=== PATIENT | male | born 1995 | race Caucasian/White ===

== ENCOUNTER 2020-08-11 03:56 | Emergency (ER) | payer OTHER ==
[~2020-08-11] VITALS: Ht 182.9 cm; Wt 122.6 kg
[~2020-08-11 03:56] MED LIST: AZIT250T6 PO
--- NOTE | 2020-08-11 04:05 | PHYS DOC ---
Past History Past Medical History: No Pertinent History, Sciatica Past Surgical History: No Surgical History Smoking: Non-smoker Alcohol Use: None Drug Use: None General Adult EDM: Chief Complaint: BACK PAIN OR INJURY HPI: HPI: "..I ve hurt my back before..but never this bad....",," earlier reffing..a soccer games at [place]..running up and down field..but pain started..and has gotten much worse... I took my mom muscle relaxer..but it has not helped..." Patient is a 25 year old male who presents with above hx and complaints lumbar sacral back pain. Pain is localized more on the left. Pain follows the sciatic nerve into the hip. Straight leg lift on both sides exacerbates pain but more so on the left. DTR reflexes are 1-2 patella. Does have saddle sensation. No problems with urination. No problems with defecation. No history of fever or chills. No history of IV drug use. No history of cancer. 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 Patient denies any history of immunosuppression. Denies any travel outside the [place] area. Review of Systems: Review of Systems: Constitutional: Denies fever or chills Eyes: Denies change in visual acuity HENT: Denies nasal congestion or sore throat Respiratory: Denies cough or shortness of breath Cardiovascular: Denies chest pain or edema GI: Denies abdominal pain, nausea, vomiting, bloody stools or diarrhea : Denies dysuria Musculoskeletal: Complains of back pain Integument: Denies rash Neurologic: Denies headache, focal weakness or sensory changes Endocrine: Denies polyuria or polydipsia Lymphatic: Denies swollen glands Psychiatric: Denies depression or anxiety Heart Score: Risk Factors: Risk Factors: DM, Current or recent (<one month) smoker, HTN, HLP, family history of CAD, obesity. Risk Scores: Score 0 - 3: 2.5% MACE over next 6 weeks - Discharge Home Score 4 - 6: 20.3% MACE over next 6 weeks - Admit for Clinical Observation Score 7 - 10: 72.7% MACE over next 6 weeks - Early Invasive Strategies Family History: Family History: Noncontributory to presentation Current Medications: Current Meds: Tylenol and ibuprofen. Did take mother's muscle relaxant? Allergies: Allergies: Allergies Coded Allergies Type Severity Reaction Last Updated Verified amoxicillin Allergy Unknown 11/08/16 Yes Physical Exam: PE: Constitutional: Well developed, well nourished, in acute distress, non-toxic milton earance. [] HENT: Normocephalic, atraumatic, bilateral external ears normal, oropharynx moist, no oral exudates, nose normal. [] Eyes: PERRLA, EOMI, conjunctiva normal, no discharge. [] Neck: Normal range of motion, no tenderness, supple, no stridor. [] Cardiovascular:Heart rate regular rhythm, no murmur [] Lungs & Thorax: Bilateral breath sounds clear to auscultation [] Abdomen: Bowel sounds normal, soft, no tenderness, no masses, no pulsatile masses. [] Circumcised male. Testicles descended. Skin: Warm, dry, no erythema, no rash. [] Back: Lumbar sacral muscle spasms. Left sciatic nerve tenderness, no CVA tenderness. [] Extremities: No tenderness, no cyanosis, no clubbing, ROM intact, no edema. [] Neurologic: Alert and oriented X 3, very guarded ataxic gait, requires a wheelchair to get into the building,.. [] DTRs +1-2 knees. No saddle loss. Pain appears to track along left sciatic nerve. Psychologic: Affect anxious, judgement normal, mood normal. [] EKG: EKG: [] Radiology/Procedures: Radiology/Procedures: [][place] [address] IMAGING REPORT Signed PATIENT: CASEY BOUCHER ACCOUNT: [id number] : 1995 LOCATION: ER AGE: 25 SEX: M EXAM STATUS: REG ER ORD. PHYSICIAN: ALLEGRA KUMARI MD REASON: back injury, PAIN PROCEDURE: CT LUMBAR SPINE WO CONTRAST INDICATION: Reason: back injury, PAIN / Spl. Instructions: / History: COMPARISON: None. TECHNIQUE: Axial CT images obtained through the lumbar spine. One or more of the following individualized dose reduction techniques were utilized for this examination: 1. Automated exposure control; 2. Adjustment of the mA and/or kV according to patient size; 3. Use of iterative reconstruction technique. FINDINGS: There is multiple endplate indentations throughout the lumbar spine. This includes at L3, L2, L1, T12, T11 and partially visualized T10. Moderate loss of height of T11 vertebral body. Mild retrolisthesis of L4 on 5, L3 on 4, L1 on 2, T12 on L1. No evidence of dislocation. There is a disc protrusion at L4-5 with mass effect on the thecal sac. This does cause some central canal stenosis. There is also some less severe disc bulges at other levels as well as osteophyte formation and facet hypertrophy. IMPRESSION: * Deformity of multiple vertebral endplates throughout the lumbar and partially visualized lower thoracic spine. Could be congenital in nature or secondary to causes such as Schmorl's node formation. * Loss of height of the T11 vertebral body. A portion of this is likely secondary to congenital process but a mild compression fracture could have this appearance as well given that this degree of loss of vertebral body height is more severe than at the other levels. Could be chronic in nature given the appearance but no comparison to assess for change. * Degenerative changes the spine with early osteophyte formation as well as multiple disc protrusions. More than typically seen for the patient's age. Electronically signed by: Ale Garcia MD (08/11/2020 5:35 AM) [id number] DICTATED AND SIGNED BY: ALE GARCIA MD DATE: 08/11/20 0535 CC: ALLEGRA KUMARI MD; CARMINE ROJAS MD ~ Course & Med Decision Making: Course & Med Decision Making Pertinent Labs and Imaging studies reviewed. (See chart for details) Patient use ice packs as needed. Avoid any heat compresses until after 3 days. Do not lift more than 25 pounds until follow-up with primary care. Consider follow-up with neurosurgery. Patient take Tylenol and ibuprofen for pain. May take Vicoprofen up to 4 times a day for marked pain. May take Flexeril 10 mg up to 3 times a day for muscle spasms. Return if any concerns. Impression: 1. Back Pain 2. Sciatica 3. Multilevel degenerative joint changes with disc protrusions(-some mass- effect at L4-L5.) [] Mervin Disclaimer: Dragon Disclaimer: This electronic medical record was generated, in whole or in part, using a voice recognition dictation system. Departure Departure: Disposition: 01 HOME/RESIDENCE PRIOR TO ADM Condition: STABLE Referrals: CARMINE ROJAS MD (PCP) Scripts Cyclobenzaprine Hcl (CYCLOBENZAPRINE HCL) 10 Mg Tablet 10 MG PO TID PRN PRN for spasms, #30 TAB Prov: ALLEGRA KUMARI MD 08/11/20 Hydrocodone/Ibuprofen (HYDROCODONE-IBUPROFEN 7.5-200 ) 1 Each Tablet 1 TAB PO PRN Q6HRS PRN for PAIN, #30 TAB 0 Refills Prov: ALLEGRA KUMARI MD 08/11/20 Justification of Admission: Justification of Admission: Justification of Admission Dx: N/A Dragon Disclaimer This chart was dictated in whole or in part using Voice Recognition software in a busy, high-work load, and often noisy Emergency Department environment. It may contain unintended and wholly unrecognized errors or omissions. Dragon Disclaimer This chart was dictated in whole or in part using Voice Recognition software in a busy, high-work load, and often noisy Emergency Department environment. It may contain unintended and wholly unrecognized errors or omissions. Dragon Disclaimer This chart was dictated in whole or in part using Voice Recognition software in a busy, high-work load, and often noisy Emergency Department environment. It may contain unintended and wholly unrecognized errors or omissions. ALLEGRA KUMARI MD Aug 11, 2020 04:05
[2020-08-11 04:15] VITALS: BP 136/81
[2020-08-11] MEDS ORDERED: ORPHENADRINE CITRATE 60 MG/2 ML VIAL. IM ONE (04:15)
[2020-08-11] MEDS ORDERED: KETOROLAC 60 MG/2 ML VIAL. IM ONE (04:15)
[2020-08-11] MEDS ORDERED: MORPHINE SULFATE 10 MG/ML SYRINGE. SQ ONE (04:15)
--- NOTE | 2020-08-11 05:38 | RAD ---
INDICATION: Reason: back injury, PAIN / Spl. Instructions: / History: COMPARISON: None. TECHNIQUE: Axial CT images obtained through the lumbar spine. One or more of the following individualized dose reduction techniques were utilized for this examination: 1. Automated exposure control; 2. Adjustment of the mA and/or kV according to patient size; 3. Use of iterative reconstruction technique. FINDINGS: There is multiple endplate indentations throughout the lumbar spine. This includes at L3, L2, L1, T12, T11 and partially visualized T10. Moderate loss of height of T11 vertebral body. Mild retrolisthesis of L4 on 5, L3 on 4, L1 on 2, T12 on L1. No evidence of dislocation. There is a disc protrusion at L4-5 with mass effect on the thecal sac. This does cause some central canal stenosis. There is also some less severe disc bulges at other levels as well as osteophyte formation and facet hypertrophy. IMPRESSION: * Deformity of multiple vertebral endplates throughout the lumbar and partially visualized lower thoracic spine. Could be congenital in nature or secondary to causes such as Schmorl's node formation. * Loss of height of the T11 vertebral body. A portion of this is likely secondary to congenital process but a mild compression fracture could have this appearance as well given that this degree of loss of vertebral body height is more severe than at the other levels. Could be chronic in nature given the appearance but no comparison to assess for change. * Degenerative changes the spine with early osteophyte formation as well as multiple disc protrusions. More than typically seen for the patient's age. Electronically signed by: Jermaine Chan MD (08/11/2020 5:35 AM) [id number]
[2020-08-11] MEDS ORDERED: methylPREDNISolone ACETATE 40 MG/ML VIAL. IM ONE (05:45)
[2020-08-11] MEDS ORDERED: HYDR-1179 PO (05:49)
[2020-08-11] MEDS ORDERED: CYCL-331 PO (05:49)
== END 2020-08-11 06:14 | disposition home or self-care (01) ==
LOC: ER 03:56
DX: M54.42 Lumbago with sciatica, left side (principal); M53.3 Sacrococcygeal disorders, not elsewhere classified; Z88.1 Allergy status to other antibiotic agents
CPT/HCPCS: 72131; 96372; 99284; J1030; J1885; J2270; J2360

== ENCOUNTER 2021-11-07 13:33 | Emergency (ER) | payer OTHER ==
[~2021-11-07] VITALS: Ht 182.9 cm; Wt 115.0 kg
[~2021-11-07 13:33] MED LIST changes: +CYCL10TA19 PO; +HYDR-1179 PO
[2021-11-07] MEDS ORDERED: KETOROLAC 15 MG/ML VIAL. IVP ONE (14:15)
[2021-11-07] MEDS ORDERED: CYCLOBENZAPRINE 10 MG TABLET. PO ONE (14:15)
[2021-11-07 15:04] VITALS: BP 121/61
[2021-11-07] MEDS ORDERED: CYCL10TA19 PO (15:23)
--- NOTE | 2021-11-07 15:24 | PHYS DOC ---
Past History Past Medical History: No Pertinent History, Sciatica (RAZA WELLER APRN) Past Surgical History: No Surgical History (RAZA WELLER APRN) Smoking: Non-smoker Alcohol Use: Occasionally Drug Use: None (RAZA WELLER APRN) General Adult EDM: Chief Complaint: BACK PAIN OR INJURY HPI: HPI: Patient is a 26-year-old male presents with left-sided lower back pain that radiates down left leg. Patient denies saddle anesthesia. Denies urinary retention or loss of bowel. Denies injury. Patient states that he had gone to PT a year ago for sciatic nerve pain. Patient reports that symptoms of the same as a year ago. Denies taking anything for pain prior to arrival. Denies medical history. (RAZA WELLER APRN) Review of Systems: Review of Systems: ROS At least 10 ROS systems have been reviewed and are negative except as documented in the HPI. General: Negative except as outlined in HPI above. Skin: Negative except as outlined in HPI above. HEENT: Negative except as outlined in HPI above. Neck: Negative except as outlined in HPI above. Respiratory: Negative except as outlined in HPI above.. Cardiovascular: Negative except as outlined in HPI above. Abdomen: Negative except as outlined in HPI above. : Negative except as outlined in HPI above. Back/MSK: Negative except as outlined in HPI above. Neuro: Negative except as outlined in HPI above. Psych: Negative except as outlined in HPI above. (RAZA WELLER APRN) Current Medications: Current Meds: Current Medications Medications (Trade) Dose Ordered Sig/Camille Start Time Stop Time Status Last Admin Dose Admin Cyclobenzaprine HCl (Flexeril) 10 mg 1X ONCE 11/07/21 14:15 11/07/21 14:19 DC 11/07/21 14:32 10 MG Ketorolac Tromethamine (Toradol 15mg Vial) 15 mg 1X ONCE 11/07/21 14:15 11/07/21 14:19 DC 11/07/21 14:32 15 MG (RAZA WELLER APRN) Allergies: Allergies: Allergies Coded Allergies Type Severity Reaction Last Updated Verified amoxicillin Allergy Unknown 11/08/16 Yes (RAZA WELLER APRN) Physical Exam: PE: Constitutional: Well developed, well nourished, no acute distress, non-toxic appearance. [] HENT: Normocephalic, atraumatic, bilateral external ears normal, oropharynx moist, no oral exudates, nose normal. [] Eyes: PERRLA, EOMI, conjunctiva normal, no discharge. [] Neck: Normal range of motion, no tenderness, supple, no stridor. [] Cardiovascular:Heart rate regular rhythm, no murmur [] Lungs & Thorax: Bilateral breath sounds clear to auscultation [] Abdomen: Bowel sounds normal, soft, no tenderness, no masses, no pulsatile masses. [] Skin: Warm, dry, no erythema, no rash. [] Back: Left lower back tenderness, no CVA tenderness. [] Extremities: No tenderness, no cyanosis, no clubbing, ROM intact, no edema. Left legpain radiating down leg Neurologic: Alert and oriented X 3, normal motor function, normal sensory function, no focal deficits noted. [] Psychologic: Affect normal, judgement normal, mood normal. [] (RAZA WELLER APRN) Current Patient Data: Vital Signs: Vital Signs Date Time Temp Pulse Resp B/P (MAP) Pulse Ox O2 Delivery O2 Flow Rate FiO2 11/07/21 13:42 97.6 60 18 150/76 (100) 98 Room Air (RAZA WELLER APRN) EKG: EKG: [] (RAZA WELLER APRN) Radiology/Procedures: Radiology/Procedures: [] (RAZA WELLER APRN) Heart Score: C/O Chest Pain: No Risk Factors: Risk Factors: DM, Current or recent (<one month) smoker, HTN, HLP, family history of CAD, obesity. Risk Scores: Score 0 - 3: 2.5% MACE over next 6 weeks - Discharge Home Score 4 - 6: 20.3% MACE over next 6 weeks - Admit for Clinical Observation Score 7 - 10: 72.7% MACE over next 6 weeks - Early Invasive Strategies (RAZA WELLER APRN) Course & Med Decision Making: Course & Med Decision Making Pertinent Labs and Imaging studies reviewed. (See chart for details) [] 26-year-old male presents with left-sided lower back pain radiates down left leg. Patient has history of sciatic nerve pain and was in physical therapy 1 year ago. Patient reports symptoms are the same. Denies saddle anesthesia. Denies urinary retention or loss of bowel. Patient given Flexeril and Toradol. Reassessed patient. Patient states pain has greatly improved. Patient is still having lower left sided back pain. Patient given IM Medrol. Sending patient home with Flexeril to help with pain. Advised patient to take ibuprofen as well. Patient's pain is most likely from sciatic nerve pain. Discussed return precautions in length. Patient verbalizes understanding of discharge instructions. Patient should follow-up with PCP if pain does not resolve. (RAZA WELLER APRN) Mervin Disclaimer: Mervin Disclaimer: This electronic medical record was generated, in whole or in part, using a voice recognition dictation system. (RAZA WELLER APRN) Attending Co-Sign The patient was seen and interviewed as well as examined at the bedside. The chart was reviewed. The case was discussed. Agree with the plan of care. (DERIC EDWARDS DO) Departure Departure: Impression: Primary Impression: Sciatica, left side Disposition: 01 HOME / SELF CARE / HOMELESS Condition: STABLE Referrals: CARMINE ROJAS MD (PCP) Patient Instructions: Sciatica, [id number] Additional Instructions: You were seen in the emergency room for lower left-sided back pain that radiated down her left leg. You were given a muscle relaxer and pain medication while in the ER. Sending you home with muscle relaxer. Please take ibuprofen at home. Follow-up with your PCP if pain does not improve. Please return to the emergency room with increasing pain. Urinary retention, loss of bowel. Or any other concerns or problems. EMERGENCY DEPARTMENT GENERAL DISCHARGE INSTRUCTIONS Thank you for coming to [facility] (ED) today and trusting us with you care. We trust that you had a positivie experience in our Emergency Department. If you wish to speak to the department management, you may call the director at . YOUR FOLLOW UP INSTRUCTIONS ARE FOLLOWS: 1. Do you have a private Doctor? If you do not have a private doctor, please ask for a resource list of physicians or clinics that may be able to assist you with follow up care. 2. The Emergency Physician has interpreted your x-rays. The X-Ray specialist will also review them. If there is a change in the findings, you will be notified in 48 hours when at all possible. 3. A lab test or culture has been done, your results will be reviewed and you will be notified if you need a change in treatment. ADDITIONAL INSTRUCTIONS AND INFORMATION: 1. Your care today has been supervised by a physician who is specially trained in emergency care. Many problems require more than one evaluation for a complete diagnosis and treatment. We recommend that you schedule your follow up appointment as recommended to ensure complete treatment of you illness or injury. If you are unable to obtain follow up care and continue to have a problem, or if your condition worsens, we recommend that you return to the ED. 2. We are not able to safely determine your condition over the phone nor are we able to give sound medical advice over the phone. For these safety reasons, if you call for medical advice we will ask you to come to the ED for further evaluation. 3. If you have any questions regarding these discharge instructions please call the ED at [phone]. SAFETY INFORMATION: In the interest of safety, wellness, and injury prevention; we encourage you to wear your sealbelt, if you smoke; quite smoking, and we encourage family to use a protective helmet for bicycling and other sporting events that present an increased risk for head injury. IF YOUR SYMPTOMS WORSEN OR NEW SYMPTOMS DEVELOP, OR YOU HAVE CONCERNS ABOUT YOUR CONDITION; OR IF YOUR CONDITION WORSENS WHILE YOU ARE WAITING FOR YOUR FOLLOW UP APPOINTMENT; EITHER CONTACT YOUR PRIMARY CARE DOCTOR, THE PHYSICIAN WHOSE NAME AND NUMBER YOU WERE GIVEN, OR RETURN TO THE ED IMMEDIATELY. Scripts Cyclobenzaprine Hcl (CYCLOBENZAPRINE HCL) 10 Mg Tablet 1 TAB PO TID PRN for PAIN for 5 Days, #15 TAB 0 Refills Prov: RAZA WELLER APRN 11/07/21 RAZA WELLER APRN Nov 07, 2021 15:24 DERIC EDWARDS DO Nov 08, 2021 12:52
[2021-11-07] MEDS ORDERED: methylPREDNISolone ACETATE 40 MG/ML VIAL. IM ONE (15:45)
== END 2021-11-07 15:42 | disposition home or self-care (01) ==
LOC: ER 13:33
DX: M54.42 Lumbago with sciatica, left side (principal); Z88.1 Allergy status to other antibiotic agents
CPT/HCPCS: 96372; 96374; 99283; J1030; J1885

== ENCOUNTER 2022-02-26 09:44 | Emergency (ER) | payer OTHER ==
[~2022-02-26] VITALS: Ht 182.9 cm; Wt 118.0 kg
[2022-02-26 10:19] VITALS: BP 152/97
--- NOTE | 2022-02-26 11:30 | PHYS DOC ---
Past History Past Medical History: No Pertinent History, Sciatica Past Surgical History: No Surgical History Smoking: Non-smoker Alcohol Use: Occasionally Drug Use: None General Adult EDM: Chief Complaint: TESTICULAR PAIN OR INJURY HPI: HPI: Patient is a 26-year-old male presents with left-sided testicular pain. Patient states that pain started last night. Patient reports that pain is intermittent and feels tingling and sharp. Patient states that he has had this happen before and symptoms resolved on their own. Denies pain with urination or frequency. No penile discharge. Denies injury. History of chronic, low back pain. Review of Systems: Review of Systems: ROS At least 10 ROS systems have been reviewed and are negative except as documented in the HPI. General: Negative except as outlined in HPI above. Skin: Negative except as outlined in HPI above. HEENT: Negative except as outlined in HPI above. Neck: Negative except as outlined in HPI above. Respiratory: Negative except as outlined in HPI above.. Cardiovascular: Negative except as outlined in HPI above. Abdomen: Negative except as outlined in HPI above. : Negative except as outlined in HPI above. Back/MSK: Negative except as outlined in HPI above. Neuro: Negative except as outlined in HPI above. Psych: Negative except as outlined in HPI above. Allergies: Allergies: Allergies Coded Allergies Type Severity Reaction Last Updated Verified amoxicillin Allergy Unknown 11/08/16 Yes Physical Exam: PE: Constitutional: Well developed, well nourished, no acute distress, non-toxic appearance. [] HENT: Normocephalic, atraumatic, bilateral external ears normal, oropharynx moist, no oral exudates, nose normal. [] Eyes: PERRLA, EOMI, conjunctiva normal, no discharge. [] Neck: Normal range of motion, no tenderness, supple, no stridor. [] Cardiovascular:Heart rate regular rhythm, no murmur [] Lungs & Thorax: Bilateral breath sounds clear to auscultation [] Abdomen: Bowel sounds normal, soft, no tenderness, no masses, no pulsatile masses. [] Skin: Warm, dry, no erythema, no rash. [] Back: No tenderness, no CVA tenderness. [] Extremities: No tenderness, no cyanosis, no clubbing, ROM intact, no edema. [] Neurologic: Alert and oriented X 3, normal motor function, normal sensory function, no focal deficits noted. [] Psychologic: Affect normal, judgement normal, mood normal. [] Current Patient Data: Vital Signs: Vital Signs Date Time Temp Pulse Resp B/P (MAP) Pulse Ox O2 Delivery O2 Flow Rate FiO2 02/26/22 10:19 97.9 67 18 152/97 (115) 98 Room Air EKG: EKG: [] Radiology/Procedures: Radiology/Procedures: []Examination: Ultrasound testis CLINICAL HISTORY: Left testicular pain COMPARISON: None available. TECHNIQUE: Ultrasound images of the scrotum was performed with regan-scale and color doppler. FINDINGS: The right testis measures 4.3 x 2.7 x 1.8 cm. The left testis measures 4.3 x 3.1 x 2.2 cm. Blood flow identified in the right and left testis. There is a 4 mm cyst identified in the left epididymis likely small epididymal cyst. IMPRESSION: 1. Normal blood flow bilateral testis. 2. Small 4 mm left epididymal cyst. Electronically signed by: Tavo Keller MD (02/26/2022 11:55 AM) [id number] Heart Score: C/O Chest Pain: No Risk Factors: Risk Factors: DM, Current or recent (<one month) smoker, HTN, HLP, family history of CAD, obesity. Risk Scores: Score 0 - 3: 2.5% MACE over next 6 weeks - Discharge Home Score 4 - 6: 20.3% MACE over next 6 weeks - Admit for Clinical Observation Score 7 - 10: 72.7% MACE over next 6 weeks - Early Invasive Strategies Course & Med Decision Making: Course & Med Decision Making Pertinent Labs and Imaging studies reviewed. (See chart for details) [] 26-year-old male presents with left-sided testicular pain. Pain is intermittent and feels tingling sensation along with sharp pains. Patient is rating pain 3/10. Denies needing anything for pain at this time. Denies injury. Physical exam is unremarkable. No swelling seen. Pain does not change with elevation of testicle. Work-up in ER consist of left-sided chest like to your ultrasound to rule out torsion. Ultrasound is unremarkable. Blood flow is seen in the testes. Left testicle shows small epididymal cyst. UA is negative for infection and blood. Discussed all results with patient. Advised patient if symptoms do not improve, follow-up with PCP for further management. Discussed return precautions. Mervin Disclaimer: Dragon Disclaimer: This electronic medical record was generated, in whole or in part, using a voice recognition dictation system. Departure Departure: Impression: Primary Impression: Testicular pain, left Disposition: HOME / SELF CARE / HOMELESS Condition: STABLE Referrals: CARMINE ROJAS MD (PCP) Patient Instructions: Testicular Problems and Self-Exam Additional Instructions: You were seen in the emergency room for left-sided testicular pain. Ultrasound was unremarkable. Your urine was negative for infection. Please follow-up with your PCP for further management. Return to emergency room if you have worsening symptoms or concerns such as an increase in pain. EMERGENCY DEPARTMENT GENERAL DISCHARGE INSTRUCTIONS Thank you for coming to [facility] (ED) today and trusting us with you care. We trust that you had a positivie experience in our Emergency Department. If you wish to speak to the department management, you may call the director at [phone]. YOUR FOLLOW UP INSTRUCTIONS ARE FOLLOWS: 1. Do you have a private Doctor? If you do not have a private doctor, please ask for a resource list of physicians or clinics that may be able to assist you with follow up care. 2. The Emergency Physician has interpreted your x-rays. The X-Ray specialist will also review them. If there is a change in the findings, you will be notified in 48 hours when at all possible. 3. A lab test or culture has been done, your results will be reviewed and you will be notified if you need a change in treatment. ADDITIONAL INSTRUCTIONS AND INFORMATION: 1. Your care today has been supervised by a physician who is specially trained in emergency care. Many problems require more than one evaluation for a complete diagnosis and treatment. We recommend that you schedule your follow up appointment as recommended to ensure complete treatment of you illness or injury. If you are unable to obtain follow up care and continue to have a problem, or if your condition worsens, we recommend that you return to the ED. 2. We are not able to safely determine your condition over the phone nor are we able to give sound medical advice over the phone. For these safety reasons, if you call for medical advice we will ask you to come to the ED for further evaluation. 3. If you have any questions regarding these discharge instructions please call the ED at [phone]. SAFETY INFORMATION: In the interest of safety, wellness, and injury prevention; we encourage you to wear your sealbelt, if you smoke; quite smoking, and we encourage family to use a protective helmet for bicycling and other sporting events that present an increased risk for head injury. IF YOUR SYMPTOMS WORSEN OR NEW SYMPTOMS DEVELOP, OR YOU HAVE CONCERNS ABOUT YOUR CONDITION; OR IF YOUR CONDITION WORSENS WHILE YOU ARE WAITING FOR YOUR FOLLOW UP APPOINTMENT; EITHER CONTACT YOUR PRIMARY CARE DOCTOR, THE PHYSICIAN WHOSE NAME AND NUMBER YOU WERE GIVEN, OR RETURN TO THE ED IMMEDIATELY. RAZA WELLER APRN Feb 26, 2022 11:30
--- NOTE | 2022-02-26 11:57 | RAD ---
Examination: Ultrasound testis CLINICAL HISTORY: Left testicular pain COMPARISON: None available. TECHNIQUE: Ultrasound images of the scrotum was performed with regan-scale and color doppler. FINDINGS: The right testis measures 4.3 x 2.7 x 1.8 cm. The left testis measures 4.3 x 3.1 x 2.2 cm. Blood flow identified in the right and left testis. There is a 4 mm cyst identified in the left epididymis like ly small epididymal cyst. IMPRESSION: 1. Normal blood flow bilateral testis. 2. Small 4 mm left epididymal cyst. Electronically signed by: Tavo Keller MD (02/26/2022 11:55 AM) [id number]
[2022-02-26 13:01] LABS: BACTERIA,URINE 0 /HPF (0-FEW); CLARITY,URINE CLEAR; COLOR,URINE YELLOW; GLUCOSE,URINE NEG (NEG); NITRITE,URINE NEG (NEG); UROBILINOGEN,URINE 0.2 mg/dL (0.2 mg/dL); WBC,URINE OCC /HPF (0-4)
[2022-02-26 13:02] LABS: SQUAMOUS EPITHELIAL CELL,UR OCC /LPF
== END 2022-02-26 14:15 | disposition home or self-care (01) ==
LOC: ER 09:44
DX: N50.812 Left testicular pain (principal); G89.29 Other chronic pain; Z88.1 Allergy status to other antibiotic agents
CPT/HCPCS: 36415; 76870; 81001; 87491; 87591; 99284